=== PATIENT | female | born 1950 | race Caucasian/White ===

== ENCOUNTER 2020-03-27 08:20 | Emergency (ER) | payer MEDICARE, MEDICAID, SELFPAY ==
[2020-03-27 08:28] VITALS: RESP 21; TEMP 36.9; BMI 20.2
[2020-03-27 08:40] VITALS: BP 220/117; PULSE 73; RESP 22; TEMP 36.9; O2SAT 95
--- NOTE | 2020-03-27 08:45 | ECG_ITS ---
[facility] Test Date: 2020-03-27 Pat Name: Pratima Matthews Department: Room: Gender: Female Engineering Supervisor: : 1950 Requested By: Hayde Terrazas Order Number: [id number] Reading MD: MELISSA BRYANT Measurements Intervals [place] Rate: 74 P: 63 ME: 146 QRS: 61 QRSD: 89 T: 72 QT: 383 QTc: 426 Interpretive Statements SINUS RHYTHM POSSIBLE LEFT ATRIAL ENLARGEMENT [-0.1mV P WAVE IN V1/V2] No previous ECG available for comparison Electronically Signed On 03-27-2020 19:35:40 ELECTRICAL TECH/PROJECT MANAGER by MELISSA BRYANT [email or web address]/[id number] f
--- NOTE | 2020-03-27 08:45 | XRR_ITS ---
PROCEDURE INFORMATION: Exam: XR Chest, 1 View Exam date and time: 03/27/2020 8:53 AM Age: 69 years old Clinical indication: Cough TECHNIQUE: Imaging protocol: XR of the chest Views: 1 view. COMPARISON: No relevant prior studies available. FINDINGS: Lungs: Interstitial thickening/scarring lower lungs. Likely left hilar and perihilar calcified granulomata. Pleural space: Unremarkable. No pleural effusion. No pneumothorax. Heart/Mediastinum: Unremarkable. No cardiomegaly. Bones/joints: Degenerative change of thoracic spine. XR/XR chest 1V portable [id number] IMPRESSION: Minor interstitial thickening/scarring lower lungs.
[2020-03-27 08:52] LABS: Basophils # 0.1 10^3/uL (0.0-0.1); Eosinophils # 0.1 10^3/uL (0.0-0.8); Hematocrit 45.3 % (37.0-47.0); Hemoglobin 14.8 g/dL (11.5-15.3); Lymphocytes # 2.6 10^3/uL (0.8-4.8); Lymphocytes % 20.8 %; Mean Corpuscular HGB Conc 32.7 g/dL (30.0-36.0); Mean Corpuscular Hemoglobin 31.8 pg (28.0-34.0); Mean Corpuscular Volume 97.4 fL (81-99); Mean Platelet Volume 10.3 fL (7.4-10.4); Monocytes # 0.9 10^3/uL (0.2-0.9); Monocytes % 7.6 %; Neutrophils # 7.94 10^3/uL (1.8-7.7); Nucleated Red Blood Cells % 0.2 %; Platelet Count 348 10^3/cmm (130-400); Red Blood Count 4.65 10^6/uL (4.1-5.3); White Blood Count 12.4 10^3/uL (4.0-10.0)
--- NOTE | 2020-03-27 08:52 | ED_ITS ---
HPI - General Adult General: Chief complaint: General Medical Stated complaint: high blood pressure Time Seen by Provider: 03/27/20 08:24 History of Present Illness: HPI narrative: This patient is a 69-year-old female who presents with concerns about high blood pressure. She says her blood pressures been getting higher and higher over the past couple of days since she was started on prednisone on Saturday. She had a headache when she woke up this morning but denies chest pain. She feels a little short of breath. She is extremely anxious. She has been shaky. She was put on the prednisone for cough and wheezing. She has COPD and is a heavy smoker. She was coughing up green sputum. She was put on doxycycline and prednisone, 40 mg daily for the first 3 days then 20 mg after that. She took the 40 mg on Saturday and Saturday. She took 20 mg on Saturday morning. She has not taken any today. She takes blood pressure medications and took an extra 1 last night. She has not taken any extra today. She takes benazepril hydrochlorothiazide and lisinopril. She did have a Covid test done on Saturday but has not gotten the results yet. This was done at [facility]. She does not have any fever, body aches, nausea or vomiting. She has had a little diarrhea which she attributes to the antibiotic and prednisone. She has not had any exposures to Covid. She has not lost her taste and smell. Onset (ago): day(s) (3) Relieving factors: none Exacerbating factors: medication Associated symptoms: Reports cough, dyspnea and other (Shaky); Deny chest pain, headache(s), malaise, nausea, rash or vomiting Review of Systems 2 General: Reports: 10 or more systems reviewed and unremarkable except in HPI and below Const: Denies: fever(s), chills, fatigue or malaise Eyes: Denies: change in vision ENMT: Denies: odynophagia Card: Denies: chest pain or swelling of feet/ankles Resp: Reports: dyspnea and productive cough (Green sputum) GI: Denies: abdominal pain, nausea or vomiting : Denies: flank pain or difficulty voiding Musc: Denies: neck pain or back pain Skin/Breast: Denies: rash Neuro: Denies: headache(s), numbness in extremities or weakness in extremities Psych: Reports: anxiety and sleeping less Freddy/Lymph: Denies: easy bruising or easy bleeding Physical Exam Const: COMMON NORMALS: patient oriented x3, no limitations and alert GENERAL APPEARANCE: cooperative HENMT: HEAD & SCALP: normal to inspection FACE & SINUS: normal facial exam Eye: GENERAL EYE: appearance normal, both eyes and all related structures Neck/C-Spine: COMMON NORMALS: supple, no meningeal signs and no JVD Chest: COMMONS NORMALS: normal inspection of the chest Resp: COMMON NORMALS: normal respiratory effort and No use of accessory muscles EFFORT & INSPECTION: Yes tachypneic (Mild) AUSCULTATION: wheezes left upper Cardio: COMMON NORMALS: no JVD, regular rate, regular rhythm and No murmurs present (Cardio) RATE: regular rate RHYTHM: regular rhythm GI: COMMON NORMALS: Normal to inspection, nondistended, normoactive bowel sounds present, Soft to palpation and non-tender INSPECTION: Yes normal to inspection AUSCULTATION: Yes normoactive bowel sounds PALPATION: Yes Soft to palpation Back/Pelvis: COMMON NORMALS: thoracic and lumbar spine normal to inspection Extremity: COMMON NORMALS: normal to inspection Neuro: COMMON NORMALS: patient oriented x3, moves all extremities, no focal motor deficits and no sensory deficits noted SENSORIUM/ORIENTATION: Yes alert MENINGEAL SIGNS: Yes no meningeal signs Psych: COMMON NORMALS: mental status grossly normal, cooperative and normal affect Skin: COMMON NORMALS: no rashes or lesions noted and turgor normal GENERAL SKIN EXAM: no rashes or lesions noted and turgor normal Course ED course: Patient presents concerned about her blood pressure. She is exceedingly anxious and even tremulous. She was given little Ativan and that did help. Her blood pressure gradually came down. She was also given a clonidine 0.1 mg. Her work-up was unremarkable. I recommended that she stop t he prednisone. She understands that it may take several days for that to get out of her system and that her blood pressure may continue to run high for little bit. Her daughter also encouraged her to try to relax. I recommended that she not check her blood pressure too often. We discussed return precautions, specifically returning for symptoms rather than a number on the blood pressure monitor. Vital Signs: Vital signs: Vital Signs Temperature 98.5 F 03/27/20 11:54 Pulse Rate 61 03/27/20 11:54 Respiratory Rate 18 03/27/20 11:54 Blood Pressure 159/85 03/27/20 11:54 Pulse Oximetry 94 03/27/20 11:54 [facility] - General Adult Lab Data: Labs: Lab Results 03/27/20 03/27/20 03/27/20 Range/Units 08:42 08:42 08:42 WBC 12.4 H (4.0-10.0) 10^3/ uL RBC 4.65 (4.1-5.3) 10^6/u L Hgb 14.8 (11.5-15.3) g/dL Hct 45.3 (37.0-47.0) % MCV 97.4 (81-99) fL MCH 31.8 (28.0-34.0) pg MCHC 32.7 (30.0-36.0) g/dL RDW 13.0 (12.1-15.1) % Plt Count 348 (130-400) 10^3/c mm MPV 10.3 (7.4-10.4) fL Neut % (Auto) 69.6 % Lymph % (Auto) 20.8 % Harmon % (Auto) 7.6 % Eos % (Auto) 1.0 % Baso % (Auto) 1.0 % Neut # (Auto) 7.94 H (1.8-7.7) 10^3/u L Lymph # (Auto) 2.6 (0.8-4.8) 10^3/u L Harmon # (Auto) 0.9 (0.2-0.9) 10^3/u L Eos # (Auto) 0.1 (0.0-0.8) 10^3/u L Baso # (Auto) 0.1 (0.0-0.1) 10^3/u L Nucleated RBC % (a uto) 0.2 % Nucleated RBCs # 0.0 /100WBC Sodium 142 (136-145) mmol/L Potassium 3.7 (3.5-5.1) mmol/L Chloride 99 (98-107) mmol/L Carbon Dioxide 33 H (22-29) mmol/L Anion Gap 13.7 (5-19) BUN 15 (8-23) mg/dL Creatinine 0.5 (0.5-0.9) mg/dL GFR Calculation 122.0 (90-130) mL/min Glucose 93 (65-115) mg/dL Calculated Osmolal ity 295 (285-295) mOsm/k g Calcium 9.7 (8.5-10.5) mg/dL Total Bilirubin 0.2 (0.15-1.2) mg/dL AST 14 (0-32) U/L ALT 17 (0-33) U/L Alkaline Phosphata se 80 (35-105) IU/L Troponin T Baselin e 13 H (0-10) ng/L Troponin T 120 Min [place] (0-10) ng/L Delta Troponin T (0-10) ABS# Total Protein 6.1 L (6.6-8.7) g/dL Albumin 3.9 (3.5-5.2) g/dL Globulin 2.2 (1.3-4.6) g/dL 03/27/20 Range/Units 10:47 WBC (4.0-10.0) 10^3/ uL RBC (4.1-5.3) 10^6/u L Hgb (11.5-15.3) g/dL Hct (37.0-47.0) % MCV (81-99) fL MCH (28.0-34.0) pg MCHC (30.0-36.0) g/dL RDW (12.1-15.1) % Plt Count (130-400) 10^3/c mm MPV (7.4-10.4) fL Neut % (Auto) % Lymph % (Auto) % Harmon % (Auto) % Eos % (Auto) % Baso % (Auto) % Neut # (Auto) (1.8-7.7) 10^3/u L Lymph # (Auto) (0.8-4.8) 10^3/u L Harmon # (Auto) (0.2-0.9) 10^3/u L Eos # (Auto) (0.0-0.8) 10^3/u L Baso # (Auto) (0.0-0.1) 10^3/u L Nucleated RBC % (a uto) % Nucleated RBCs # /100WBC Sodium (136-145) mmol/L Potassium (3.5-5.1) mmol/L Chloride (98-107) mmol/L Carbon Dioxide (22-29) mmol/L Anion Gap (5-19) BUN (8-23) mg/dL Creatinine (0.5-0.9) mg/dL GFR Calculation (90-130) mL/min Glucose (65-115) mg/dL Calculated Osmolal ity (285-295) mOsm/k g Calcium (8.5-10.5) mg/dL Total Bilirubin (0.15-1.2) mg/dL AST (0-32) U/L ALT (0-33) U/L Alkaline Phosphata se (35-105) IU/L Troponin T Baselin e (0-10) ng/L Troponin T 120 Min [place] 11.67 H (0-10) ng/L Delta Troponin T -1.33 L (0-10) ABS# Total Protein (6.6-8.7) g/dL Albumin (3.5-5.2) g/dL Globulin (1.3-4.6) g/dL EKG Data^: EKG 1: EKG interpretation date: 03/27/20 EKG interpretation time: 08:35 Interpretation: Sinus rhythm with a rate of 74. Slight left atrial enlargement. Otherwise unremarkable EKG. Computer generated interpretation: Chest X-Ray 03/27/20 08:45 IMPRESSION: Minor interstitial thickening/scarring lower lungs. Discharge Plan Discharge Patient Disposition: Home Clinical Impression: Bronchitis Hypertension Qualifiers: Hypertension type: unspecified Qualified Code(s): I10 - Essential (primary) hypertension Condition: Stable Prescriptions: No Action doxycycline hyclate 100 mg Capsule 100 mg PO BID RF: 0 ipratropium-albuterol 0.5 mg-3 mg(2.5 mg base)/3 mL Solution For Nebulization 3 ml INHALATION Q6H PRN (Reason: Shortness Of Breath) RF: 0 bisoprolol-hydrochlorothiazide 10-6.25 mg Tablet 1 tab PO DAILY RF: 0 hydrocodone-acetaminophen 5-325 mg Tablet 1 tab PO Q6H PRN (Reason: Pain) RF: 0 lisinopril 20 mg Tablet 20 mg PO DAILY RF: 0 prednisone 20 mg Tablet See Rx Instructions .ROUTE .COMPLEX RF: 0 albuterol sulfate 90 mcg/actuation Hfa Aerosol Inhaler 2 puff INHALATION Q6H PRN (Reason: Shortness Of Breath) RF: 0 albuterol sulfate 90 mcg/actuation HFA aerosol inhaler 2 inh INHALATION Q4H PRN (Reason: shortness of breath or wheezing) Qty: 18 RF: 0 Discharge Orders: Discharge Order (Routine); Ordered 03/27/20 Ordered By: Hayde Yuen Discharge Diet: Usual diet Discharge Activity: Resume usual activity Patient Instructions: Acute Bronchitis (ED), Hypertension (ED) Activity Restrictions/Additional Instructions: Stop taking the prednisone. This is most likely what is causing your blood pressure to be high. Continue taking the antibiotic and your regular blood pressure medicines as prescribed. It will take several days for the prednisone to completely go out of your system so do not be alarmed if your blood pressure remains high for several days. Follow-up with your primary care provider if cough is not improving or any other new concerns. Discharge Date/Time: 03/27/20 12:04 Coding Level of Care Code ED Developer Evangelist for Emma Fwjoshua Exam Comprehensive
[2020-03-27 08:59] VITALS: BP 220/117
[2020-03-27] MEDS: cloNIDine 0.1 mg Tablet PO (08:59)
[2020-03-27] MEDS: LORazepam 2 mg/mL INJ 1 mL 0.5 MG IVP (09:00)
[2020-03-27 09:08] LABS: Alanine Aminotransferase 17 U/L (0-33); Albumin Level 3.9 g/dL (3.5-5.2); Alkaline Phosphatase 80 IU/L (35-105); Anion Gap 13.7 (5-19); Aspartate Amino Transferase 14 U/L (0-32); Blood Urea Nitrogen 15 mg/dL (8-23); Calcium 9.7 mg/dL (8.5-10.5); Carbon Dioxide 33 mmol/L (22-29); Chloride 99 mmol/L (98-107); Globulin 2.2 g/dL (1.3-4.6); Glucose 93 mg/dL (65-115); Osmolality Calculated 295 mOsm/kg (285-295); Potassium 3.7 mmol/L (3.5-5.1); Sodium 142 mmol/L (136-145); Total Bilirubin 0.2 mg/dL (0.15-1.2); Total Protein 6.1 g/dL (6.6-8.7)
[2020-03-27 09:09] LABS: Troponin(5th) Baseline 13 ng/L (0-10)
[2020-03-27 09:31] LABS: Neutrophils % 69.6 %
[2020-03-27 09:33] LABS: Slide Review Slide Review Perform
[2020-03-27 09:53] VITALS: BP 167/91; PULSE 60; RESP 23; O2SAT 92
--- NOTE | 2020-03-27 10:45 | ECG_ITS ---
[facility] Test Date: 2020-03-27 Pat Name: Pratima Matthews Department: Room: Gender: Female Mill Control Operator: : 1950 Requested By: Hayde Terrazas Order Number: [id number] Reading MD: MELISSA BRYANT Measurements Intervals [place] Rate: 64 P: 62 MI: 140 QRS: 63 QRSD: 88 T: 71 QT: 413 QTc: 427 Interpretive Statements SINUS RHYTHM POSSIBLE LEFT ATRIAL ENLARGEMENT [-0.1mV P WAVE IN V1/V2] Compared to ECG 03/27/2020 08:33:58 No significant changes Electronically Signed On 03-27-2020 19:36:18 ETYMOLOGY TEACHER by MELISSA BRYANT [email or web address]/[id number] f
[2020-03-27 11:09] LABS: Troponin 5 2HR 11.67 ng/L (0-10)
[2020-03-27 11:11] LABS: Troponin 5 2HR Delta -1.33 ABS# (0-10)
[2020-03-27 11:49] VITALS: BP 159/85; PULSE 64; RESP 20; O2SAT 94
[2020-03-27 11:54] VITALS: BP 159/85; PULSE 61; RESP 18; TEMP 36.9; O2SAT 94
== END 2020-03-27 12:04 | disposition home or self-care (01) ==
PROVIDERS: Emergency Provider Emergency Medicine
DX: I10 Essential (primary) hypertension (principal); J40 Bronchitis, not specified as acute or chronic
CPT/HCPCS: 12345; 71045; 80053; 84484; 85025; 93005; 96374; 96375; 99283; J2060

== ENCOUNTER 2020-03-30 07:55 | Emergency (ER) | payer MEDICARE, MEDICAID, SELFPAY ==
[2020-03-30 08:00] VITALS: BP 174/95; PULSE 70; RESP 18; TEMP 36.5; O2SAT 93; BMI 20.9
--- NOTE | 2020-03-30 08:15 | XR_ITS ---
WS: [id number] CHEST XRAY TECHNIQUE: Portable chest. CLINICAL INFORMATION: htn COMPARISON: March 27, 2020 FINDINGS: Heart: Normal cardiac silhouette. Lungs: Moderate chronic emphysematous changes. No acute pulmonary infiltrates. A few calcified granul omas. Bones: Mild thoracic curve. XR/XR chest 1V portable [id number] IMPRESSION: No acute chest findings
--- NOTE | 2020-03-30 08:16 | ECG_ITS ---
[facility] Test Date: 2020-03-30 Pat Name: Pratima Matthews Department: Room: Gender: Female Pediatric Psychologist: : 1950 Requested By: Hayde Terrazas Order Number: [id number] Jose Enrique MD: Hoa Pino M.D. Measurements Intervals [place] Rate: 64 P: 68 AK: 142 QRS: 54 QRSD: 83 T: 75 QT: 427 QTc: 441 Interpretive Statements SINUS RHYTHM Compared to ECG 03/27/2020 10:35:28 No significant changes Electronically Signed On 03-30-2020 19:14:06 PRESSURE TESTER by Hoa Pino M.D. [id number]
--- NOTE | 2020-03-30 08:19 | W.ED.GENADLT ---
HPI - General Adult General: Chief complaint: General Medical Stated complaint: HIGH BLOOD PRESSURE Time Seen by Provider: 03/30/20 07:58 History of Present Illness: HPI narrative: This patient is a 69-year-old female who presents today with concerns of her high blood pressure. She was seen here few days ago with the same concerns. At that time she had been started on prednisone for bronchitis and that was thought to be the cause. She has not taken a dose of prednisone since Saturday when she took 20 mg. She has been taking her regular blood pressure medications. Her blood pressures continue to be high and she is continue to have a headache. She also notes that she feels like she is swelling. She said her fingers are swollen and she has to urinate quite frequently but only small amounts. She said it does not feel like a UTI but feels more like she is not able to completely empty her bladder. She had initially been put on the prednisone for bronchitis. She continues to have a cough which is nonproductive. She feels short of breath particularly when laying down. She had a Covid test done on Saturday and the results of that were negative. She has not had a fever. She is a heavy smoker. Associated symptoms: Reports dyspnea and headache(s); Deny chest pain, malaise, nausea, rash or vomiting Review of Systems General: Reports: 10 or more systems reviewed and unremarkable except in HPI and below Const: Denies: fever(s), chills, fatigue or malaise Eyes: Denies: change in vision ENMT: Denies: odynophagia Card: Denies: chest pain or swelling of feet/ankles Resp: Reports: dyspnea and non-productive cough; Denies: productive cough GI: Denies: abdominal pain, nausea or vomiting : Reports: urinary frequency; Denies: flank pain or difficulty voiding Musc: Denies: neck pain or back pain Skin/Breast: Denies: rash Neuro: Reports: headache(s); Denies: numbness in extremities or weakness in extremities Freddy/Lymph: Denies: easy bruising or easy bleeding Physical Exam Const: COMMON NORMALS: no acute distress, patient oriented x3, no limitations and alert GENERAL APPEARANCE: cooperative and comfortable HENMT: HEAD & SCALP: normal to inspection FACE & SINUS: normal facial exam Eye: GENERAL EYE: appearance normal, both eyes and all related structures Neck/C-Spine: COMMON NORMALS: supple, no meningeal signs and no JVD Chest: COMMONS NORMALS: normal inspection of the chest Resp: COMMON NORMALS: normal respiratory effort and No use of accessory muscles AUSCULTATION: wheezes left lower and left upper Cardio: COMMON NORMALS: no JVD, regular rate, regular rhythm and No murmurs present (Cardio) RATE: regular rate RHYTHM: regular rhythm GI: COMMON NORMALS: Normal to inspection, nondistended, normoactive bowel sounds present, Soft to palpation and non-tender INSPECTION: Yes normal to inspection AUSCULTATION: Yes normoactive bowel sounds PALPATION: Yes Soft to palpation Back/Pelvis: COMMON NORMALS: thoracic and lumbar spine normal to inspection Extremity: COMMON NORMALS: normal to inspection Neuro: COMMON NORMALS: patient oriented x3, moves all extremities, no focal motor deficits and no sensory deficits noted SENSORIUM/ORIENTATION: Yes alert MENINGEAL SIGNS: Yes no meningeal signs Psych: COMMON NORMALS: mental status grossly normal, cooperative and normal affect Skin: COMMON NORMALS: no rashes or lesions noted and turgor normal GENERAL SKIN EXAM: no rashes or lesions noted and turgor normal Course ED course: Ms. Matthews had a benign work-up in the ED. Her blood pressure gradually came down into the 120s over 70s. She was quite happy with that. She did have a post void residual of over 300 cc. 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 She is also had to do straight cathing in the past. She said that has not been a problem for her recently but she was not surprised by the finding. Her symptoms of frequency also resolved in the ER for whatever reason. We discussed the option of a catheter which I do not think is a necessity and she definitely does not want 1 currently. There is no evidence of UTI. She is happy to go home and will continue her regular medications. Vital Signs: Vital signs: Vital Signs Temperature 97.7 F 03/30/20 08:00 Pulse Rate 70 03/30/20 08:00 Respiratory Rate 18 03/30/20 08:00 Blood Pressure 174/95 03/30/20 08:00 Pulse Oximetry 93 03/30/20 08:00 [facility] - General Adult Lab Data: Labs: Lab Results 03/30/20 03/30/20 03/30/20 Range/Units 08:34 08:34 08:34 WBC 11.0 H (4.0-10.0) 10^3/ uL RBC 4.61 (4.1-5.3) 10^6/u L Hgb 14.6 (11.5-15.3) g/dL Hct 44.0 (37.0-47.0) % MCV 95.4 (81-99) fL MCH 31.7 (28.0-34.0) pg MCHC 33.2 (30.0-36.0) g/dL RDW 13.0 (12.1-15.1) % Plt Count 264 (130-400) 10^3/c mm MPV 10.0 (7.4-10.4) fL Neut % (Auto) 77.9 % Lymph % (Auto) 12.3 % [place] % (Auto) 5.3 % Eos % (Auto) 2.1 % Baso % (Auto) 0.5 % Neut # (Auto) 8.59 H (1.8-7.7) 10^3/u L Lymph # (Auto) 1.4 (0.8-4.8) 10^3/u L [place] # (Auto) 0.6 (0.2-0.9) 10^3/u L Eos # (Auto) 0.2 (0.0-0.8) 10^3/u L Baso # (Auto) 0.1 (0.0-0.1) 10^3/u L Nucleated RBC % (a uto) 0 % Nucleated RBCs # 0.0 /100WBC Sodium 140 (136-145) mmol/L Potassium 4.1 (3.5-5.1) mmol/L Chloride 100 (98-107) mmol/L Carbon Dioxide 31 H (22-29) mmol/L Anion Gap 13.1 (5-19) BUN 16 (8-23) mg/dL Creatinine 0.5 (0.5-0.9) mg/dL GFR Calculation 122.0 (90-130) mL/min Glucose 109 (65-115) mg/dL Calculated Osmolal ity 292 (285-295) mOsm/k g Calcium 9.1 (8.5-10.5) mg/dL Total Bilirubin 0.3 (0.15-1.2) mg/dL AST 13 (0-32) U/L ALT 13 (0-33) U/L Alkaline Phosphata se 82 (35-105) IU/L Troponin T Baselin e 9 (0-10) ng/L Troponin T 120 Min [place] (0-10) ng/L Delta Troponin T (0-10) ABS# NT-Pro-B Natriuret Pep 239 H (0-125) pg/mL Total Protein 5.5 L (6.6-8.7) g/dL Albumin 3.6 (3.5-5.2) g/dL Globulin 1.9 (1.3-4.6) g/dL Lipase 13 (13-60) U/L Urine Color (Yellow) Urine Appearance (CLEAR) Urine pH (5-7) Ur Specific Gravit y (1.005-1.030) Urine Protein (Negative) Urine Glucose (UA) (Normal) Urine Ketones (Negative) Urine Blood (Negative) Urine Nitrate (Negative) Urine Bilirubin (Negative) Urine Urobilinogen (Negative) mg/dL Ur Leukocyte Clarice ase (Negative) Urine RBC (0-2) /hpf Urine WBC (0-5) /hpf Ur Squamous Epith Cells (0-5) /hpf Amorphous Sediment Urine Bacteria (NONE) /hpf 03/30/20 03/30/20 Range/Units 08:44 10:30 WBC (4.0-10.0) 10^3/ uL RBC (4.1-5.3) 10^6/u L Hgb (11.5-15.3) g/dL Hct (37.0-47.0) % MCV (81-99) fL MCH (28.0-34.0) pg MCHC (30.0-36.0) g/dL RDW (12.1-15.1) % Plt Count (130-400) 10^3/c mm MPV (7.4-10.4) fL Neut % (Auto) % Lymph % (Auto) % [place] % (Auto) % Eos % (Auto) % Baso % (Auto) % Neut # (Auto) (1.8-7.7) 10^3/u L Lymph # (Auto) (0.8-4.8) 10^3/u L [place] # (Auto) (0.2-0.9) 10^3/u L Eos # (Auto) (0.0-0.8) 10^3/u L Baso # (Auto) (0.0-0.1) 10^3/u L Nucleated RBC % (a uto) % Nucleated RBCs # /100WBC Sodium (136-145) mmol/L Potassium (3.5-5.1) mmol/L Chloride (98-107) mmol/L Carbon Dioxide (22-29) mmol/L Anion Gap (5-19) BUN (8-23) mg/dL Creatinine (0.5-0.9) mg/dL GFR Calculation (90-130) mL/min Glucose (65-115) mg/dL Calculated Osmolal ity (285-295) mOsm/k g Calcium (8.5-10.5) mg/dL Total Bilirubin (0.15-1.2) mg/dL AST (0-32) U/L ALT (0-33) U/L Alkaline Phosphata se (35-105) IU/L Troponin T Baselin e (0-10) ng/L Troponin T 120 Min [place] 8.54 (0-10) ng/L Delta Troponin T -0.46 L (0-10) ABS# NT-Pro-B Natriuret Pep (0-125) pg/mL Total Protein (6.6-8.7) g/dL Albumin (3.5-5.2) g/dL Globulin (1.3-4.6) g/dL Lipase (13-60) U/L Urine Color Yellow (Yellow) Urine Appearance Clear (CLEAR) Urine pH 5.0 (5-7) Ur Specific Gravit y 1.010 (1.005-1.030) Urine Protein Neg (Negative) Urine Glucose (UA) Norm (Normal) Urine Ketones Negative (Negative) Urine Blood 2+ H (Negative) Urine Nitrate Negative (Negative) Urine Bilirubin Neg (Negative) Urine Urobilinogen Norm (Negative) mg/dL Ur Leukocyte Clarice ase Negative (Negative) Urine RBC 0-4 H (0-2) /hpf Urine WBC None (0-5) /hpf Ur Squamous Epith Cells 5-10 H (0-5) /hpf Amorphous Sediment Not Reportable Urine Bacteria Trace (NONE) /hpf Discharge Plan Discharge Patient Disposition: Home Clinical Impression: Urinary retention with incomplete bladder emptying Hypertension Qualifiers: Hypertension type: unspecified Qualified Code(s): I10 - Essential (primary) hypertension Condition: Stable Prescriptions: New albuterol sulfate 90 mcg/actuation HFA aerosol inhaler 2 inh INHALATION Q4H PRN (Reason: shortness of breath or wheezing) Qty: 18 RF: 0 No Action doxycycline hyclate 100 mg Capsule 100 mg PO BID RF: 0 ipratropium-albuterol 0.5 mg-3 mg(2.5 mg base)/3 mL Solution For Nebulization 3 ml INHALATION Q6H PRN (Reason: Shortness Of Breath) RF: 0 bisoprolol-hydrochlorothiazide 10-6.25 mg Tablet 1 tab PO DAILY RF: 0 hydrocodone-acetaminophen 5-325 mg Tablet 1 tab PO Q6H PRN (Reason: Pain) RF: 0 lisinopril 20 mg Tablet 20 mg PO DAILY RF: 0 prednisone 20 mg Tablet See Rx Instructions .ROUTE .COMPLEX RF: 0 albuterol sulfate 90 mcg/actuation Hfa Aerosol Inhaler 2 puff INHALATION Q6H PRN (Reason: Shortness Of Breath) RF: 0 Discharge Orders: Discharge Order (Routine); Ordered 03/30/20 Ordered By: Hayde Yuen Referrals: Min Campoverde MD [Physician] - 7-10 days Discharge Diet: Usual diet Discharge Activity: Resume usual activity Patient Instructions: Chronic Urinary Retention in Women (ED), Hypertension (ED) Activity Restrictions/Additional Instructions: Continue your regular medications and regular activities. Follow-up with Dr. Campoverde regarding your incomplete bladder emptying. Return to the ER if painful urination, fever, nausea. Coding Level of Care Code ED Consulting Application Engineer for Chg Fwd Exam Comprehensive
[2020-03-30 08:42] LABS: Basophils # 0.1 10^3/uL (0.0-0.1); Basophils % 0.5 %; Eosinophils # 0.2 10^3/uL (0.0-0.8); Eosinophils % 2.1 %; Hemoglobin 14.6 g/dL (11.5-15.3); Lymphocytes # 1.4 10^3/uL (0.8-4.8); Lymphocytes % 12.3 %; Mean Corpuscular HGB Conc 33.2 g/dL (30.0-36.0); Mean Corpuscular Hemoglobin 31.7 pg (28.0-34.0); Mean Corpuscular Volume 95.4 fL (81-99); Monocytes # 0.6 10^3/uL (0.2-0.9); Monocytes % 5.3 %; Neutrophils # 8.59 10^3/uL (1.8-7.7); Neutrophils % 77.9 %; Nucleated Red Blood Cells % 0 %; Platelet Count 264 10^3/cmm (130-400); Red Blood Count 4.61 10^6/uL (4.1-5.3)
[2020-03-30 09:02] LABS: Troponin(5th) Baseline 9 ng/L (0-10)
[2020-03-30 09:04] LABS: Add Urine Microscopic? YES; Bilirubin Urine Neg (Negative); Blood Urine 2+ (Negative); Glucose Urine UA Norm (Normal); Ketones Urine Negative (Negative); Leukocyte Esterase Urine Negative (Negative); Nitrate Urine Negative (Negative); Protein Urine Neg (Negative); Urine Appearance Clear (CLEAR); Urine Color Yellow (Yellow); Urobilinogen Urine Norm (Negative)
[2020-03-30 09:11] LABS: Alanine Aminotransferase 13 U/L (0-33); Albumin Level 3.6 g/dL (3.5-5.2); Alkaline Phosphatase 82 IU/L (35-105); Anion Gap 13.1 (5-19); Aspartate Amino Transferase 13 U/L (0-32); Blood Urea Nitrogen 16 mg/dL (8-23); Calcium 9.1 mg/dL (8.5-10.5); Carbon Dioxide 31 mmol/L (22-29); Chloride 100 mmol/L (98-107); Globulin 1.9 g/dL (1.3-4.6); Glucose 109 mg/dL (65-115); Lipase 13 U/L (13-60); NT Pro B Type Natriuretic Pept 239 pg/mL (0-125); Osmolality Calculated 292 mOsm/kg (285-295); Potassium 4.1 mmol/L (3.5-5.1); Sodium 140 mmol/L (136-145); Total Bilirubin 0.3 mg/dL (0.15-1.2); Total Protein 5.5 g/dL (6.6-8.7)
[2020-03-30 09:13] LABS: Add Urine Culture? No; Bacteria Urine TRACE /hpf; RBC Urine 0-4 /hpf (0-2)
--- NOTE | 2020-03-30 10:16 | ECG_ITS ---
[facility] Test Date: 2020-03-30 Pat Name: Pratima Matthews Department: Room: Gender: Female Catering Convention Services Manager: : 1950 Requested By: Hayde Terrazas Order Number: [id number] Jose Enrique MD: Hoa Pino M.D. Measurements Intervals [place] Rate: 63 P: 67 ME: 143 QRS: 53 QRSD: 80 T: 74 QT: 426 QTc: 437 Interpretive Statements SINUS RHYTHM Compared to ECG 03/30/2020 09:01:01 No significant changes Electronically Signed On 03-30-2020 19:30:59 SHED WORKERS SUPERVISOR by Hoa Pino M.D. [id number]
[2020-03-30 10:55] LABS: Troponin 5 2HR 8.54 ng/L (0-10)
[2020-03-30 10:57] LABS: Troponin 5 2HR Delta -0.46 ABS# (0-10)
--- NOTE | 2020-03-30 11:16 | PC.NURSE ---
EKG done at 1115 and shown to ER doctor
--- NOTE | 2020-03-30 12:06 | PC.NURSE ---
patients bladder scanned 340 mls detected
[2020-03-30 12:07] VITALS: BP 138/76; PULSE 71; RESP 20; O2SAT 93
== END 2020-03-30 12:10 | disposition home or self-care (01) ==
PROVIDERS: Emergency Provider Emergency Medicine
DX: I10 Essential (primary) hypertension (principal); R33.9 Retention of urine, unspecified
CPT/HCPCS: 12345; 71045; 80053; 81001; 83690; 83880; 84484; 85025; 93005; 99283; 99284

== ENCOUNTER 2021-02-24 19:59 | Emergency (ER) | payer MEDICARE, MEDICAID, SELFPAY ==
[2021-02-24 20:09] VITALS: BP 135/78; PULSE 87; RESP 18; TEMP 36.9; O2SAT 91; BMI 19.6
--- NOTE | 2021-02-25 00:31 | CTR_ITS ---
PROCEDURE INFORMATION: Exam: CT Head Without Contrast Exam date and time: 02/25/2021 12:31 AM Age: 70 years old Clinical indication: Pain; Headache not specified TECHNIQUE: Imaging protocol: Computed tomography of the head without contrast. Radiation optimization: All CT scans at this facility use at least one of these dose optimization techniques: automated exposure control; mA and/or kV adjustment per patient size (includes targeted exams where dose is matched to clinical indication); or iterative reconstruction. COMPARISON: No relevant prior studies available. RADIATION DOSE METRICS: Total DLP (mGy-cm): 970.18 FINDINGS: Brain: Mild white matter chronic microvascular changes are noted. No hemorrhage or evidence of acute infarction is seen. Cerebral ventricles: No ventriculomegaly. Paranasal sinuses: Visualized sinuses are unremarkable. No fluid levels. Mastoid air cells: Visualized mastoid air cells are well aerated. Bones/joints: Unremarkable. No acute fracture. Soft tissues: Unremarkable. CT/CT head wo con* [id number] IMPRESSION: No acute intracranial abnormality. Radiation Dose CTDIVOL = (mGy): DLP = 970.18 (mGy-cm)
--- NOTE | 2021-02-25 00:31 | CTR_ITS ---
PROCEDURE INFORMATION: Exam: CT Neck With Contrast Exam date and time: 02/25/2021 12:31 AM Age: 70 years old Clinical indication: Neck pain TECHNIQUE: Imaging protocol: Computed tomography images of the neck with contrast. Radiation optimization: All CT scans at this facility use at least one of these dose optimization techniques: automated exposure control; mA and/or kV adjustment per patient size (includes targeted exams where dose is matched to clinical indication); or iterative reconstruction. Contrast material: OMNI 300; Contrast volume: 75 ml; Contrast route: INTRAVENOUS (IV); COMPARISON: CT head wo con* [id number] 02/25/2021 1:44 AM RADIATION DOSE METRICS: Total DLP (mGy-cm): 403.08 FINDINGS: Paranasal sinuses: There is mucosal thickening seen within the left maxillary sinus. Nasopharynx: Unremarkable. Oropharynx: Unremarkable. No significant tonsillar enlargement. Hypopharynx: Unremarkable. Larynx: Unremarkable. Normal epiglottis. Retropharyngeal space: Unremarkable. Submandibular/Parotid glands: Normal. Glands are normal in size. Thyroid: Normal. No enlarged or calcified nodules. Lymph nodes: There are mildly prominent cervical lymph nodes seen bilaterally these are most prominent on the right in the submandibular region, the largest measuring 11.1 mm transverse dimension. Trachea: Visualized trachea is unremarkable. Lungs: Unremarkable as visualized. Bones/joints: Diffuse loss of disc height compatible with degenerative disc disease. There is a 3.3 mm anterior spondylolisthesis C6 on C7 likely secondary to the degenerative disc disease. Soft tissues: There is mild swelling and bruising seen within the left supraorbital region. CT/CT neck w con* [id number] IMPRESSION: 1. There are mildly prominent cervical lymph nodes present bilaterally a most notably within the right submandibular region, the largest measuring 11.1 mm transverse dimension. 2. Mucosal thickening seen within the left maxillary sinus. Radiation Dose CTDIVOL = (mGy): DLP = 403.08 (mGy-cm)
--- NOTE | 2021-02-25 00:31 | XRR_ITS ---
PROCEDURE INFORMATION: Exam: XR Chest Exam date and time: 02/25/2021 12:31 AM Age: 70 years old Clinical indication: Fever; Additional info: HX of fever and leukocytosis TECHNIQUE: Imaging protocol: XR of the chest. Views: 1 view. COMPARISON: CR XR chest 1V portable [id number] 03/30/2020 8:17 AM FINDINGS: Lungs: A calcified granuloma is present in the left upper lobe. The lungs are otherwise clear. Pleural spaces: Unremarkable. No pleural effusion. No pneumothorax. Heart/Mediastinum: Unremarkable. No cardiomegaly. Bones/joints: S-shaped scoliosis of the spine is again noted. No acute fracture is visualized. XR/XR chest 1V portable [id number] IMPRESSION: No acute cardiopulmonary abnormality.
[2021-02-25 00:34] VITALS: BP 142/63; PULSE 80; RESP 18; O2SAT 94
[2021-02-25 00:35] VITALS: RESP 18
[2021-02-25] MEDS: fentaNYL 50 mcg/mL INJ 2mL IVP ×2 (00:35→07:45)
[2021-02-25] MEDS: ondansetron 2 mg/ML SDV 2 mL 4 MG IVP (00:35)
[2021-02-25] MEDS: ketorolac 30 mg/mL INJ 15 MG IVP (00:35)
[2021-02-25] MEDS: sodium chloride 0.9% 1,000 ML 999 ML IV (00:35)
[2021-02-25 00:49] LABS: Basophils # 0.2 10^3/uL (0.0-0.1); Basophils % 0.2 %; Hematocrit 38.5 % (37.0-47.0); Hemoglobin 12.5 g/dL (11.5-15.3); Lymphocytes # 12.4 10^3/uL (0.8-4.8); Lymphocytes % 13.3 %; Mean Corpuscular HGB Conc 32.5 g/dL (30.0-36.0); Mean Corpuscular Hemoglobin 33.1 pg (28.0-34.0); Mean Corpuscular Volume 101.9 fl (81-99); Mean Platelet Volume 11.7 fL (7.4-10.4); Monocytes # 69.6 10^3/uL (0.2-0.9); Monocytes % 74.7 %; Neutrophils # 6.22 10^3/uL (1.8-7.7); Neutrophils % 6.6 %; Nucleated Red Blood Cells # 0.2 /100WBC; Nucleated Red Blood Cells % 0.2 %; Platelet Count 85 10^3/cmm (130-400); Red Blood Count 3.78 10^6/uL (4.1-5.3); Red Cell Distribution Width 16.1 % (12.1-15.1)
[2021-02-25 01:06] LABS: Alanine Aminotransferase 11 U/L (0-33); Albumin Level 3.6 g/dL (3.5-5.2); Alkaline Phosphatase 88 IU/L (35-105); Anion Gap 17.3 (5-19); Aspartate Amino Transferase 14 U/L (0-32); Blood Urea Nitrogen 20 mg/dL (8-23); Calcium 9.4 mg/dL (8.5-10.5); Carbon Dioxide 28 mmol/L (22-29); Chloride 98 mmol/L (98-107); Globulin 3.1 g/dL (1.3-4.6); Glucose 113 mg/dL (65-115); Osmolality Calculated 291 mOsm/kg (285-295); Potassium 4.3 mmol/L (3.5-5.1); Sodium 139 mmol/L (136-145); Total Bilirubin 0.2 mg/dL (0.15-1.2); Total Protein 6.7 g/dL (6.6-8.7)
[2021-02-25 01:07] LABS: Lactate (Lactic Acid level) 1.3 mmol/L (0.5-2.2)
[2021-02-25 01:11] LABS: Procalcitonin 0.12 ng/mL (0-0.5)
[2021-02-25 01:35] LABS: Slide Review Slide Review Perform
[2021-02-25 01:36] LABS: White Blood Count 93.3 10^3/uL (4.0-10.0)
[2021-02-25 01:43] LABS: Add Urine Microscopic? YES; Bilirubin Urine Neg (Negative); Blood Urine 3+ (Negative); Glucose Urine UA Norm (Normal); Ketones Urine Negative (Negative); Leukocyte Esterase Urine Negative (Negative); Nitrate Urine Negative (Negative); Protein Urine Neg (Negative); Specific Gravity, Urine 1.015 (1.005-1.030); Urine Appearance Clear (CLEAR); Urine Color Yellow (Yellow); Urobilinogen Urine Norm (Negative); pH Urine 5 (5-7)
[2021-02-25] MEDS: hydrocortisone 100 mg/2 mL SDV IVP (01:46)
[2021-02-25] MEDS: diphenhydrAMINE 50 mg/mL SDV 1mL IVP (01:46)
[2021-02-25 01:47] LABS: RBC Urine 15-25 /hpf (0-2); Squamous Epithelial Cell Urine 0-4 /hpf (0-5); WBC Urine 0-4 /hpf (0-5)
[2021-02-25 01:48] LABS: Add Urine Culture? Yes; Bacteria Urine TRACE /hpf; Hyaline Casts Urine 0-4 /lpf
[2021-02-25] MEDS: iohexol 300 mg/mL 100 mL Btl IV (01:57)
--- NOTE | 2021-02-25 04:09 | W.ED.RECABL ---
HPI - Recheck/Abnormal Lab/Rx General: Chief Complaint: Recheck/Abnormal Lab/Rx Stated Complaint: White Blood Ct High Time Seen by Provider: 02/24/21 23:40 History of Present Illness: HPI narrative: 70-year-old female sent in by her primary care provider for a high white blood cell count as an outpatient. She has been dealing with facial and sinus pain, throat pain, some stiffness in the neck and shoulders, for around 2 weeks. She has had a round of antibiotics, Zithromax. She has been on steroids as well. She has not had a fever. She was called this evening and told to be evaluated for a high white blood cell count in the ER. complaint: abnormal lab Initial visit (ago): hour(s) Initial visit for: other Symptoms since prior visit: no new symptoms and worsening swelling Context: called for abnormal lab result Associated symptoms: shortness of breath (Chronic) Treatments prior to arrival: given antibiotics on Review of Systems Const: Reports: body aches; Denies: fever(s) or chills Eyes: Denies: change in vision ENMT: Reports: throat pain, hoarseness and sinus pain Card: Denies: chest pain, palpitations or irregular heart rhythm Resp: Denies: dyspnea, productive cough or non-productive cough GI: Reports: nausea; Denies: abdominal pain or vomiting Physical Exam Const: COMMON NORMALS: no acute distress, patient oriented x3 and alert GENERAL APPEARANCE: cooperative HENMT: COMMON NORMALS: normocephalic and Normal external nose present HEAD & SCALP: normocephalic FACE & SINUS: sinus tenderness NOSE: Normal external nose present and Normal nares present MOUTH: tongue normal TEETH & GINGIVA: Yes abnormal tooth and associated gingiva (gingival swelling. ) Lymph: LYMPHATIC: lymphadenopathy (ant and post neck) Neuro: COMMON NORMALS: patient oriented x3 SENSORIUM/ORIENTATION: Yes alert Course Consultations: Consultation #1: Jovanna Leblanc [place] Vital Signs: Vital signs: Vital Signs Temperature 98.4 F 02/24/21 20:09 Pulse Rate 80 02/25/21 00:34 Respiratory Rate 18 02/25/21 00:35 Blood Pressure 142/63 02/25/21 00:34 Pulse Oximetry 94 02/25/21 05:10 MDM - Recheck/Abnormal Lab/Rx MDM Narrative: Medical decision making narrative: 70-year-old female with a history of hypertension. She presents after being told to come to the emergency department for high white blood cell count. She has a leukocytosis of 93,000. Shift is towards monocytes platelet count is 85. Other laboratory is benign. We have no heme/unk coverage here. No plasmapheresis ability. She has been accepted at [facility] in [facility] Lab Data: Labs: Lab Results 02/24/21 02/24/21 02/24/21 23:50 23:50 23:50 WBC 93.3 10^3/uL H* 1 0^3/uL (4.0-10.0) RBC 3.78 10^6/uL L 10 ^6/uL (4.1-5.3) Hgb 12.5 g/dL g/dL (11.5-15.3) Hct 38.5 % % (37.0-47.0) MCV 101.9 fl H fl (81-99) MCH 33.1 pg pg (28.0-34.0) MCHC 32.5 g/dL g/dL (30.0-36.0) RDW 16.1 % H % (12.1-15.1) Plt Count 85 10^3/cmm L 10^ 3/cmm (130-400) MPV 11.7 fL H fL (7.4-10.4) Neut % (Auto) 6.6 % % Lymph % (Auto) 13.3 % % [place] % (Auto) 74.7 % % Eos % (Auto) 0.0 % % Baso % (Auto) 0.2 % % Neut # (Auto) 6.22 10^3/uL 10^3 /uL (1.8-7.7) Lymph # (Auto) 12.4 10^3/uL H 10 ^3/uL (0.8-4.8) [place] # (Auto) 69.6 10^3/uL H 10 ^3/uL (0.2-0.9) Eos # (Auto) 0.0 10^3/uL 10^3/ uL (0.0-0.8) Baso # (Auto) 0.2 10^3/uL H 10^ 3/uL (0.0-0.1) Nucleated RBC % (a uto) 0.2 % % Nucleated RBCs # 0.2 /100WBC /100W BC Sodium 139 mmol/L mmol/L (136-145) Potassium 4.3 mmol/L mmol/L (3.5-5.1) Chloride 98 mmol/L mmol/L (98-107) Carbon Dioxide 28 mmol/L mmol/L (22-29) Anion Gap 17.3 (5-19) BUN 20 mg/dL mg/dL (8-23) Creatinine 0.6 mg/dL mg/dL (0.5-0.9) GFR Calculation Not Reportable Glucose 113 mg/dL mg/dL (65-115) Calculated Osmolal ity 291 mOsm/kg mOsm/ kg (285-295) Lactate 1.3 mmol/L mmol/L (0.5-2.2) Calcium 9.4 mg/dL mg/dL (8.5-10.5) Total Bilirubin 0.2 mg/dL mg/dL (0.15-1.2) AST 14 U/L U/L (0-32) ALT 11 U/L U/L (0-33) Alkaline Phosphata se 88 IU/L IU/L (35-105) C-Reactive Protein 86.0 mg/L H mg/L (0.0-4.9) Total Protein 6.7 g/dL g/dL (6.6-8.7) Albumin 3.6 g/dL g/dL (3.5-5.2) Globulin 3.1 g/dL g/dL (1.3-4.6) Procalcitonin 0.12 ng/mL ng/mL (0-0.5) Urine Color Urine Appearance Urine pH Ur Specific Gravit y Urine Protein Urine Glucose (UA) Urine Ketones Urine Blood Urine Nitrate Urine Bilirubin Urine Urobilinogen Ur Leukocyte Clarice ase Urine RBC Urine WBC Ur Squamous Epith Cells Amorphous Sediment Urine Bacteria Hyaline Casts 02/25/21 00:45 WBC RBC Hgb Hct MCV MCH MCHC RDW Plt Count MPV Neut % (Auto) Lymph % (Auto) [place] % (Auto) Eos % (Auto) Baso % (Auto) Neut # (Auto) Lymph # (Auto) [place] # (Auto) Eos # (Auto) Baso # (Auto) Nucleated RBC % (a uto) Nucleated RBCs # Sodium Potassium Chloride Carbon Dioxide Anion Gap BUN Creatinine GFR Calculation Glucose Calculated Osmolal ity Lactate Calcium Total Bilirubin AST ALT Alkaline Phosphata se C-Reactive Protein Total Protein Albumin Globulin Procalcitonin Urine Color Yellow (Yellow) Urine Appearance Clear (CLEAR) Urine pH 5 (5-7) Ur Specific Gravit y 1.015 (1.005-1.030) Urine Protein Neg (Negative) Urine Glucose (UA) Norm (Normal) Urine Ketones Negative (Negative) Urine Blood 3+ H (Negative) Urine Nitrate Negative (Negative) Urine Bilirubin Neg (Negative) Urine Urobilinogen Norm mg/dL mg/dL (Negative) Ur Leukocyte Clarice ase Negative (Negative) Urine RBC 15-25 /hpf H /hpf (0-2) Urine WBC 0-4 /hpf H /hpf (0-5) Ur Squamous Epith Cells 0-4 /hpf H /hpf (0-5) Amorphous Sediment Not Reportable Urine Bacteria Trace /hpf /hpf (NONE) Hyaline Casts 0-4 /lpf H /lpf Discharge Plan Discharge Patient Disposition: Xfer Short-Term Hosp Clinical Impression: Leukocytosis Qualifiers: Leukocytosis type: monocytosis Qualified Code(s): D72.821 - Monocytosis (symptomatic) Condition: Stable Coding Level of Care Code ED Anesthesiology Faculty for Chg Fwd Exam Expanded Problem Focused
[2021-02-25 05:10] VITALS: O2SAT 94
--- NOTE | 2021-02-25 06:33 | PC.NURSE ---
report called to kenroy cervantes rn at [facility]
[2021-02-25 07:30] VITALS: BP 112/60; PULSE 74; RESP 24; TEMP 36.9; O2SAT 96
[2021-02-25 07:45] VITALS: RESP 18
[2021-02-25 08:01] VITALS: BP 116/69; PULSE 77; RESP 17; O2SAT 92
[2021-02-25 09:23] LABS: Glucose Point of Care 163 mg/dL (70-110)
[2021-03-01 13:22] LABS: Erythrocyte Sedimentation Rate 2 mm/hr (0-15)
== END 2021-02-25 07:55 | disposition short-term general hospital (02) ==
PROVIDERS: Emergency Provider Emergency Medicine
DX: D72.821 Monocytosis (symptomatic) (principal)
CPT/HCPCS: 36416; 70450; 70491; 71045; 80053; 81001; 82962; 83605; 84145; 85025; 85651; 86140; 87040; 87086; 96361; 96374; 96375; 96376; 99285; J1200; J1720; J1885; J2405; J3010; J7030; Q9967